=== PATIENT | female | born 1945 ===

== ENCOUNTER 2024-10-07 09:00 | Inpatient (IN) | payer OTHER ==
[~2024-10-07] VITALS: Ht 172.7 cm; Wt 91.6 kg
[~2024-10-07 09:00] MED LIST: ALEVE220 MG PO; CEFADROXIL500 MG PO; PERCOCET 5/3251 TAB PO
[2024-10-07] MEDS ORDERED: CRESTOR40 MG (10:22)
[2024-10-07] MEDS ORDERED: ARBLI10 MG/1 ML (10:22)
[2024-10-07 10:44] LABS: BASO % 0.8 % (0.1-1.2); EOS # 0.19 (0.04-0.54); EOS % 2.9 % (0.7-7.0); LYMPH # 1.64 (1.18-3.74); LYMPH % 24.6 % (19.3-53.1); MEAN PLATELET VOLUME 10.60 fl (9.4-12.4); MONO # 0.51 (0.24-0.82); MONO % 7.7 % (4.7-12.5); NEUT # 4.25 (1.56-6.13); NEUT % 63.7 % (34.0-71.1); RED CELL DISTRIBUTION WIDTH 12.4 % (11.6-14.4)
[2024-10-07 10:47] VITALS: BP 160/90
[2024-10-07 11:08] LABS: COVID-19 AG NEGATIVE (NEGATIVE)
[2024-10-07 11:16] LABS: URINE APPEARANCE Cloudy; URINE BILIRRUBIN Negative (NEGATIVE); URINE BLOOD Negative; URINE COLOR Yellow; URINE GLUCOSE Negative (NEGATIVE); URINE KETONE Trace (NEGATIVE); URINE LEUKOCYTE Trace; URINE NITRATE Positive; URINE PROTEIN Trace (NEGATIVE); URINE UROBILINOGEN 0.2 E.U./dl
[2024-10-07 11:18] LABS: INR 0.97
[2024-10-07 11:21] LABS: URINE EPITHELIAL CELLS 72.1 uL (0.0-38.8); URINE RBC 17.3 uL (0.0-20.8); URINE WBC 31.6 uL (0.0-23.2)
[2024-10-07 11:29] LABS: ALT/SGPT 25.0 U/L (12-78); AST/SGOT 12.0 U/L (15-37); BILIRUBIN TOTAL 0.45 mg/dL (0.3-1.2); BUN CREA RATIO 17.0 (7.0-25.0); CREATININE SERUM 1.25 mg/dL (0.55-1.02); GFR 41.45; GLOBULINA 3.1 G/DL (2.4-3.5); GLUCOSE FASTING 100.0 mg/dL (65-100); HDL 36.0 mg/dl (40-60); OSMOLALITY SERUM 292.0 MOSM/KG (275-295); VLDL 40.0 (0-39)
[2024-10-07 11:34] LABS: RH POSITIVE
[2024-10-07 11:35] LABS: CHOL HDL RATIO 7.7 (0-5.0); LDL 201.0 mg/dl (0-130)
[2024-10-07 11:57] LABS: URINE BACTERIA > 9821.5 uL (0.0-1933); URINE CAST 0.14 uL (0.0-1.40); URINE CRYSTALS MANY /HPF
[2024-10-12] MEDS ORDERED: CEFAZOLIN SODIUM 1,000 MG VIAL ONE (13:30)
[2024-10-12] MEDS ORDERED: TRANEXAMIC ACID 100MG/1ML (1000MG) AMPUL ONE (17:45)
[2024-10-12] MEDS ORDERED: VANCOMYCIN HCL 1,000 MG VIAL ONE (17:46)
[2024-10-12] MEDS ORDERED: BUPIVACAINE HCL/MPF 0.5% 30ML VIAL ONE (17:46)
[2024-10-12] MEDS ORDERED: LIDOCAINE HCL 1%/EPINEPHRINE 20ML VIAL IJ ONE (17:46)
[2024-10-12] MEDS ORDERED: hydrALAZINE HCL 20 MG VIAL ONE (18:39)
[2024-10-12] MEDS ORDERED: hydrALAZINE HCL 20 MG VIAL IV ONE (18:45)
[2024-10-12] MEDS ORDERED: POVIDONE-IODINE 118 ML BOTT TOP ONE (18:54)
[2024-10-12] MEDS ORDERED: MORPHINE SULFATE 4 MG/ML VIAL IV ONE ×2 (21:00→21:30)
[2024-10-12] MEDS ORDERED: SODIUM CHLORIDE 0.45 % 1,000 ML IV SCH (21:15)
[2024-10-12] MEDS ORDERED: MORPHINE SULFATE 4 MG/ML CARTRIDGE IV PRN (21:15)
[2024-10-12] MEDS ORDERED: ONDANSETRON HCL 2 MG/ML VIAL IV PRN (21:15)
[2024-10-12] MEDS ORDERED: ONDANSETRON HCL 2 MG/ML VIAL ONE (22:26)
[2024-10-12] MEDS ORDERED: ONDANSETRON HCL 2 MG/ML VIAL IV ONE (22:30)
[2024-10-12] MEDS ORDERED: ENALAPRILAT DIHYDRATE 1.25 MG/ML VIAL IV ONE ×2 (22:41→22:45)
[2024-10-13] MEDS ORDERED: GABAPENTIN 300 MG CAPSULE PO ONE (00:20)
[2024-10-13] MEDS ORDERED: CEFAZOLIN SODIUM 1,000 MG VIAL ONE (00:20)
[2024-10-13] MEDS ORDERED: GABAPENTIN 300 MG CAPSULE PO SCH (01:00)
[2024-10-13] MEDS ORDERED: CEFAZOLIN SODIUM 1,000 MG VIAL IV SCH (01:00)
[2024-10-13 08:02] LABS: BASO % 0.2 % (0.1-1.2); EOS # 0.01 (0.04-0.54); EOS % 0.1 % (0.7-7.0); LYMPH # 0.92 (1.18-3.74); LYMPH % 7.0 % (19.3-53.1); MEAN PLATELET VOLUME 11.10 fl (9.4-12.4); MONO # 0.85 (0.24-0.82); MONO % 6.5 % (4.7-12.5); NEUT # 11.19 (1.56-6.13); NEUT % 85.7 % (34.0-71.1); RED CELL DISTRIBUTION WIDTH 12.6 % (11.6-14.4)
[2024-10-13] MEDS ORDERED: DUI500 PO (08:54)
[2024-10-13] MEDS ORDERED: DICLOFENAC POTA50 MG PO (08:54)
[2024-10-13] MEDS ORDERED: SENNOSIDES 1 TAB TABLET PO SCH (09:00)
[2024-10-13 09:16] VITALS: BP 170/80
[2024-10-14] MEDS ORDERED: IRON FUM,PS/FOLIC ACID/VITC/B3 1 CAP CAPSULE PO SCH (09:00)
== END 2024-10-13 12:48 | disposition home or self-care (01) | DRG 483 ==
LOC: SURH 10-12 09:00 → OB/GYN 10-12 13:39 → O/R 10-12 13:39 → SURG 10-12 16:18 → O/R 10-12 16:21 → SURH 10-12 18:00 → OB/GYN 10-12 21:57
PROVIDERS: ADMIT Orthopaedic Surgery; ATTEND Orthopaedic Surgery
PROC: 0LS30ZZ Reposition Right Upper Arm Tendon, Open Approach (ICD-10-PCS; 2024-10-12)
PROC: 0PUC0KZ Supplement Right Humeral Head with Nonautologous Tissue Substitute, Open Approach (ICD-10-PCS; 2024-10-12)
PROC: 0PUC0JZ Supplement Right Humeral Head with Synthetic Substitute, Open Approach (ICD-10-PCS; 2024-10-12)
PROC: 0RRJ00Z Replacement of Right Shoulder Joint with Reverse Ball and Socket Synthetic Substitute, Open Approach (ICD-10-PCS; principal; 2024-10-12 18:00)
DX: M19.011 Primary osteoarthritis, right shoulder (principal); Z96.611 Presence of right artificial shoulder joint; I10 Essential (primary) hypertension; M75.121 Complete rotator cuff tear or rupture of right shoulder, not specified as traumatic